=== PATIENT | male | born 1935 | race Caucasian/White ===

== ENCOUNTER 2018-09-29 07:30 | Inpatient (IN) | payer MEDICARE, BC ==
--- NOTE | 2018-10-05 18:22 | HP ---
PREOPERATIVE HISTORY AND PHYSICAL: DATE OF ADMISSION/SURGERY: 10/13/18 DATE OF OFFICE VISIT: 10/05/18 ATTENDING PHYSICIAN: Dr. Lyles.* (DICTATED BY SHANNAN DAVIS) PROCEDURE SCHEDULED: Right total hip arthroplasty. CHIEF COMPLAINT: Right hip pain. HISTORY OF PRESENT ILLNESS: The patient is an 83-year-old male with advanced osteoarthritis in his right hip. He has groin and thigh pain, difficulty ambulating even 1 block. He cannot ambulate well on stairs. He has used anti- inflammatories, a cane, walker, physical therapy and has tried steroid injections without relief of his hip pain. He now has elected to proceed with right total hip arthroplasty. PAST MEDICAL HISTORY: Significant for prostate cancer, osteoarthritis, and tobacco use. PAST SURGICAL HISTORY: He has had prostate surgery. MEDICATIONS: Lupron shots 22.5 mg injection every 6 months. ALLERGIES: No known drug allergies. FAMILY HISTORY: None. SOCIAL HISTORY: He lives with his daughter. He is retired. He chews tobacco. He denies use of alcohol or recreational drugs. He ambulates with a rolling walker. REVIEW OF SYSTEMS: The patient denies recent loss of consciousness, lightheadedness, dizziness, chest pain, shortness of breath, palpitations. He does have frequent urination. He has recent new GI symptoms of needing to defecate immediately after eating with intermittent bowel incontinence. PHYSICAL EXAMINATION GENERAL: He comes in a wheelchair today. He is alert and oriented x3, in no acute distress. Appropriate dress and affect. His daughter is present. VITAL SIGNS: The patient is 5 feet 8 inches tall, 138 pounds. Blood pressure 108/68. HEENT: PERRLA. NECK: Supple. LUNGS: Clear to auscultation without wheeze. HEART: Regular rate and rhythm. No murmur auscultated. ABDOMEN: Nontender. Normoactive bowel sounds x4. EXTREMITIES: Lower extremities: The right hip reveals no open areas or excoriations. Hip flexion to 80 degrees with pain. No internal or external rotation due to significant pain. His calf is nontender and soft. Gross sensation is intact. He has some dried skin in between the toes of both the right and left feet. No erythema or evidence of active infection. He has a 2+ pedal pulse. IMPRESSION: Advanced osteoarthritis of the right hip. PLAN: The patient has elected to proceed with right total hip arthroplasty scheduled 10/13/[address] Farheen Lyles. Risks and benefits of the procedure have been fully discussed with the patient today at his preoperative visit. All questions were answered and he elects to proceed. SHANNAN DAVIS [id number]/[facility] #: [id number] ROMINA
--- NOTE | 2019-01-20 14:00 | HP ---
HISTORY AND PHYSICAL: DATE OF ADMISSION/SURGERY: 01/28/19 DATE OF OFFICE VISIT: 01/18/19 SURGEON: Farheen Lyles MD * (DICTATED BY SHANNAN BRAN) PROCEDURE: Right total hip arthroplasty. CHIEF COMPLAINT: Right hip pain. HISTORY OF PRESENT ILLNESS: Mr. Dorsey is an 83-year-old gentleman with severe end-stage osteoarthritis of the right hip. He has failed conservative treatment and elected to proceed with a right total hip arthroplasty. PAST MEDICAL HISTORY: Prostate cancer. PAST SURGICAL HISTORY: Prostatectomy. CURRENT MEDICATIONS: None. ALLERGIES: None. FAMILY HISTORY: Denies. SOCIAL HISTORY: He is an 83-year-old gentleman. He lives with his daughter. He does not smoke. He does chew tobacco. Denies use of drugs. REVIEW OF SYSTEMS: A complete 14-point review of systems was reviewed with the patient, it was all negative or noncontributory. He denies history of DVT, PE, hepatitis, HIV, or anesthesia problems. PHYSICAL EXAMINATION GENERAL: He is well developed, well nourished, in no acute distress. He is alert and oriented x3. Pleasant mood, appropriate affect. VITAL SIGNS: He stands 68 inches tall, weighs 140 pounds. Blood pressure is 118/78, heart rate 72. HEENT: Normocephalic, atraumatic. NECK: Supple. No palpable lymph nodes. PULMONARY: The lungs are clear to auscultation bilaterally. CARDIO: Regular rate and rhythm. ABDOMEN: Soft, nontender, nondistended. NEUROLOGICAL: He is alert and oriented x3. MUSCULOSKELETAL: Right lower extremity: The skin is intact. There are no open wounds or abrasions. He walks with an antalgic type gait, favoring his right hip. He has decreased range of motion of the right hip. He is able to dorsiflex and plantarflex. He has a 2+ dorsalis pedis pulse and intact sensation. ASSESSMENT AND PLAN: Mr. Dorsey is an 83-year-old gentleman with severe end- stage osteoarthritis of the right hip. He has failed conservative treatment and elected to proceed with a right total hip arthroplasty. The surgery is scheduled for 01/28/[address] Lyles discussed the risks and benefits of the surgery at today's visit and all of his questions were answered. He will follow up with Dr. Lyles 2 weeks after the surgery. SHANNAN BRAN [id number]/[facility] #: [id number] ROMINA
[2019-01-27] MEDS ORDERED: Buffered Lidocaine 1% SYRIN* 1 ML/SYRINGE INTRADERM ONE (12:33)
[2019-01-28] MEDS ORDERED: Lactated Ringers 1000 ML Bag* 1,000 ML IV SCH (06:00)
[2019-01-28] MEDS ORDERED: celeCOXIB CAP* 200 MG PO ONE (06:00)
[2019-01-28] MEDS ORDERED: Acetaminophen TAB* 325 MG PO ONE (06:00)
--- OUTSIDE RECORDS SUMMARY | 2019-01-28 11:17 | XMS REPORT | Continuity of Care Document ---
:1935 External Reference #:[id number] Author Name Farheen Lyles M.D. (transmitted by agent of provider Mary Jane Appiah) Address [address] [place] [address] Care Team Providers Name Role Phone Roberto Huynh D.O. - Internal Care Team Information Pony Edger [phone] Medicine Problems Active Problems Provider Date Localized, primary osteoarthritis Omer Vasquez M.D. Onset: 03/29/2016 Social History Type Date Description Comments Sex Unknown ETOH Use Denies alcohol use Tobacco Use Start: Unknown Patient has never smoked Smoking Status Reviewed: 01/18/19 Patient has never smoked Exercise Type/Frequency Exercises sporadically Allergies, Adverse Reactions, Alerts Description No Known Drug Allergies Medications Active Medications SIG Qnty Indications Ordering Provider Date Probiotic 1 by mouth every Unknown Capsules day Medications Administered in Office Medication SIG Qnty Indications Ordering Provider Date Depomedrol 40MG Farheen Lyles M.D. 12/15/2017 Injection Depomedrol 40MG Farheen Lyles M.D. 12/15/2017 Injection Immunizations Description No Information Available Vital Signs Date Vital Result Comment 01/18/2019 9:17am Height 68 inches 5'8" Weight 140.00 lb BP Systolic 118 mmHg BP Diastolic 78 mmHg Respiratory Rate 16 /min Body Temperature 98.0 F BMI (Body Mass Index) 21.3 kg/m2 11/04/2018 1:18pm Height 68 inches 5'8" Weight 135.00 lb per patient Heart Rate 77 /min BP Systolic Sitting 110 mmHg BP Diastolic Sitting 70 mmHg Body Temperature 97.6 F BMI (Body Mass Index) 20.5 kg/m2 Results Test Acquired Date Facility Test Result H/L Range Note Urinalysis Profile 01/18/2019 [facility] Urine Color Yellow [address] [place] [address] [phone] Urine Appearance Cloudy Urine Specific [place] 1.019 Normal 1.010-1.030 Urine pH 5.0 Normal 5-9 Urine Urobilinogen Negative Negative Urine Ketones Negative Negative Urine Protein Negative Negative Urine Leukocytes Negative Negative Urine Blood Negative Negative * * Abnormal Negative 1 Urine Nitrite Negative Negative Urine Bilirubin Negative Negative Urine Glucose Negative Negative Inr/Protime 01/18/2019 [facility] Inr 0.98 Normal 0.82-1.[address] [place], [place] [id number] [phone] Laboratory test 01/18/2019 [facility] Partial 31.5 Normal 26.0 -38.[address] [place] [address] Time PTT [phone] CBC Auto Diff 01/18/2019 [facility] White Blood 7.4 10^3/uL Normal 3.5-10.[address] [place] [address] [phone] Red Blood Count 4.33 10^6/uL Normal 4.18-5.48 Hemoglobin 12.6 g/dL Low 14.0-18.0 Hematocrit 38 % Low 42-52 Mean Corpuscular Volume 88 fL Normal 80-94 Mean Corpuscular Hemoglobin 29 pg Normal 27-31 Mean Corpuscular HGB Conc 33 g/dL Normal 31-36 Red Cell Distribution Width 14 % Normal 10-15 Platelet Count 240 10^3/uL Normal 150-450 Mean Platelet Volume 8.1 fL Normal 7.4-10.4 Abs Neutrophils 5.4 10^3/uL Normal 1.5-7.7 Abs Lymphocytes 1.2 10^3/uL Normal 1.0-4.8 Abs Monocytes 0.4 10^3/uL Normal 0-0.8 Abs Eosinophils 0.3 10^3/uL Normal 0-0.6 Abs Basophils 0.1 10^3/uL Normal 0-0.2 Abs Nucleated RBC 0.0 10^3/uL Granulocyte % 73.2 % Lymphocyte % 16.4 % Monocyte % 5.8 % Eosinophil % 3.4 % Basophil % 1.2 % Nucleated Red Blood Cells % 0.0 Type & Screen 01/18/2019 [facility] Patient Blood Type A Positive [address] [place], [place] [id number] [phone] Antibody Screen NEGATIVE Comp Metabolic 01/18/2019 [facility] Sodium 144 mmol/L Normal 135-[address] [place] [address] [phone] Potassium 4.1 mmol/L Normal 3.5-5.0 Chloride 108 mmol/L Normal 101-111 Co2 Carbon Dioxide 31 mmol/L Normal 22-32 Anion Gap 5 mmol/L Normal 2-11 Glucose 82 mg/dL Normal 70-100 Blood Urea Nitrogen 29 mg/dL High 6-24 Creatinine 1.24 mg/dL High 0.67-1.17 BUN/Creatinine Ratio 23.4 High 8-20 Calcium 9.4 mg/dL Normal 8.6-10.3 Total Protein 6.6 g/dL Normal 6.4-8.9 Albumin 4.0 g/dL Normal 3.2-5.2 Globulin 2.6 g/dL Normal 2-4 Albumin/Globulin Ratio 1.5 Normal 1-3 Total Bilirubin 0.40 mg/dL Normal 0.2-1.0 Alkaline Phosphatase 94 U/L Normal 34-104 Alt 13 U/L Normal 7-52 Ast 16 U/L Normal 13-39 Egfr Non- 55.7 >60 Egfr 67.4 >60 3 Urine Culture And 01/18/2019 [facility] Urine SEE RESULT [address] [place] [address] [phone] Laboratory test 10/05/2018 [facility] Partial 32.6 seconds Normal 26[address] Thrombo Time -[address] [address] PTT 0 [phone] Urinalysis Profile 10/05/2018 [facility] [place] [address] [phone] Urine Appearance Clear Urine Specific [place] 1.020 Normal 1.010-1.030 Urine pH 6.0 Normal 5-9 Urine Urobilinogen Negative Negative Urine Ketones Negative Negative Urine Protein Negative Negative Urine Leukocytes Negative Negative Urine Blood Negative Negative Urine Nitrite Negative Negative Urine Bilirubin Negative Negative Urine Glucose Negative Negative Type & Screen 10/05/2018 [facility] Patient Blood Type A Positive [address] [place] [address] [phone] Antibody Screen NEGATIVE Urine Culture And 10/05/2018 [facility] Urine Culture SEE RESULT [address] [place] [address] [phone] 1 *Ascorbic acid is present which may interfere with detection of blood. 2 Standard intensity warfarin therapeutic range: 2.0-3.0 High intensity warfarin therapeutic range: 2.5-3.5 3 Because ethnic data is not always readily available, this report includes an eGFR for both -Americans and non- Americans. The National Kidney Disease Education Program (NKDEP) does not endorse the use of the MDRD equation for patients that are not between the ages of 18 and 70, are , have extremes of body size, muscle mass, or nutritional status, or are non- or non-. According to the National Kidney Foundation, irrespective of diagnosis, the stage of the disease is based on the level of kidney function: Stage Description GFR(mL/min/1.73 m(2)) 1 Kidney damage with normal or decreased GFR 90 2 Kidney damage with mild decrease in GFR 60-89 3 Moderate decrease in GFR 30-59 4 Severe decrease in GFR 15-29 5 Kidney failure <15 (or dialysis) 4 SEE RESULT BELOW Name: ROBB DORSEY : [address]: Farheen Lyles MD Acct: [id number] Unit: [id number] AGE: 83 Location: [facility] Re01/18/19 SEX: M Status: REG REF SPEC: [id number] DONTAE: 01/18/19-[address]: Farheen Lyles MD REQ: [id number] RECD: 01/18/19 STATUS:COMP _ SOURCE: URINE SPDESC: ORDERED: Urine Culture QUERIES: Urine Source: Clean Catch Procedure Result Reported Site Urine Culture Final 01/19/19- 1326 ML No Growth (<1,000 CFU/mL) * ML - Main Lab . END OF REPORT DEPARTMENT OF PATHOLOGY, [address] [place] [address] Jesus Strauss M.D. Director [facility] # [id number] 5 SEE RESULT BELOW Name: ROBB DORSEY : [address]: Farheen Lyles MD Acct: [id number] Unit: [id number] AGE: 83 Location: [facility] Re10/05/18 SEX: M Status: REG REF SPEC: [id number] DONTAE: 10/05/[address]: Farheen Lyles MD REQ: [id number] RECD: 10/05/18 STATUS: COMP _ SOURCE: URINE SPDESC: ORDERED: Urine Culture QUERIES: Urine Source: Random Procedure Result Reported Site Urine Culture Final 10/06/18- 1241 ML No Growth (<1,000 CFU/mL) * ML - Main Lab . END OF REPORT DEPARTMENT OF PATHOLOGY, [address] [place] [address] Jesus Strauss M.D. Director [facility] # [id number] Procedures Date Code Description Status 11/04/2018 31838 Fibroptic Laryngoscopy Completed Medical Devices Description No Information Available Encounters Type Date Location Provider Dx Diagnosis Office Visit 11/04/2018 [facility] Jairo Savage, R49.0 Dysphonia 1:30p AT [facility] Garibay R05 Cough Assessments Date Code Description Provider 11/04/2018 R49.0 Dysphonia Jairo Savage M.D. 11/04/2018 R05 Cough Jairo Savage M.D. 10/05/2018 M25.551 Pain in right hip Farheen Lyles M.D. 10/05/2018 M16.11 Unilateral primary osteoarthritis, right Farheen Lyles M.D. hip Plan of Treatment Future Appointment(s):02/08/2019 3:15 pm - Farheen Lyles M.D. at [facility]01/28/2019 12:30 pm - Teodoro Jacobs PA-C at [facility]01/28/2019 12:30 pm - SHANNAN Montoya at [facility]01/28/2019 12:30 pm - Farheen Lyles M.D. at [facility] Functional Status Description No Information Available Mental Status Description No Information Available Referrals Description No Information Available
--- OUTSIDE RECORDS SUMMARY | 2019-01-28 11:17 | XMS REPORT | Continuity of Care Document ---
:1935 External Reference #:[id number] Author Name Farheen Lyles M.D. (transmitted by agent of provider Eugenie Hurtado) Address [address] [place] [address] [place] [address] Care Team Providers Name Role Phone Roberto Huynh D.O. - Internal Care Team Information Fur Matcher Medicine Problems Active Problems Provider Date Localized, [...] Date Facility Test Result H/L Range Note Laboratory test 10/05/[address] [facility] Partial 32.6 Normal 26.0 -38.[address] [place] [address] PTT [phone] Urinalysis 10/05/[address] [facility] Urine Color Yellow Profile [address] [place], [place] [address] [phone] Urine Appearance Clear Urine Specific [place] 1.020 Normal 1.010-1.030 Urine pH 6.0 Normal 5-9 Urine Urobilinogen Negative Negative Urine Ketones Negative Negative Urine Protein Negative Negative Urine Leukocytes Negative Negative Urine Blood Negative Negative Urine Nitrite Negative Negative Urine Bilirubin Negative Negative Urine Glucose Negative Negative Type & Screen 10/05/[address] [facility] Patient Blood Type A Positive [address] [place] [address] [phone] Antibody Screen NEGATIVE Urine Culture And 10/05/[address] [facility] Urine Culture SEE RESULT [address] [place] [address] [phone] 1 SEE RESULT BELOW Name: JANEROBB A : [address]: Farheen Lyles MD Acct: [id number] Unit: [id number] AGE: 83 Location: [facility] Re10/05/18 SEX: M Status: REG REF SPEC: [id number] DONTAE: 10/05/18-[address] [facility] [address]: Farheen Lyles MD REQ: [id number] RECD: 10/05/18 STATUS: COMP _ SOURCE: URINE SPDESC: ORDERED: Urine Culture QUERIES: Urine Source: Random Procedure Result Reported Site Urine Culture Final 10/06/18- 1241 ML No Growth (<1,000 CFU/mL) * ML - Main Lab . END OF REPORT DEPARTMENT OF PATHOLOGY, [address] [place] [address] Jesus Strauss M.D. Director [facility] # [id number] Procedures Date Code Description Status 11/04/2018 10372 Fibroptic Laryngoscopy Completed Medical Devices Description No Information Available Encounters Type Date Location Provider Dx Diagnosis Office Visit 11/04/2018 [facility], R49.0 Dysphonia 1:30p AT [facility] Garibay R05 Cough Assessments Date Code Description Provider 11/04/2018 R49.0 Dysphonia Jairo Savage M.D. 11/04/2018 R05 Cough Jairo Savage M.D. 10/05/2018 M25.551 Pain in right hip Farheen Lyles M.D. 10/05/2018 M16.11 Unilateral primary osteoarthritis, right Farheen Lyles M.D. hip Plan of Treatment Future Appointment(s):02/08/2019 3:15 pm - [facility] 12:30 pm - Teodoro Jacobs PA-C at [facility]01/28/2019 12:30 pm - SHANNAN Montoya at [facility] [place]01/28/2019 12:30 pm - Farheen Lyles M.D. at [facility] Functional Status Description No Information Available Mental Status Description No Information Available Referrals Description No Information Available
[2019-01-28] MEDS ORDERED: celeCOXIB CAP* 200 MG ONE (11:44)
[2019-01-28] MEDS ORDERED: ceFAZolin 2 GM in NS PREMIX(*) 2 GM/100 ML BAG IVPB ONE (11:44)
[2019-01-28] MEDS ORDERED: Acetaminophen TAB* 325 MG ONE (11:44)
[2019-01-28] MEDS ORDERED: Propofol* 10 MG/ML 20 ML BTL ONE ×3 (12:21→16:40)
[2019-01-28] MEDS ORDERED: Lidocaine 2% PF * 5 ML VIAL ONE ×2 (12:22→14:36)
[2019-01-28] MEDS ORDERED: Propofol* 500 MG/50 ML BTL ONE (12:23)
[2019-01-28] MEDS ORDERED: KETAMINE HCL* 50 MG/ML 10 ML VIAL ONE (12:23)
[2019-01-28] MEDS ORDERED: Midazolam* 1 MG/ML 2 ML VIAL (2 MG) ONE (12:24)
[2019-01-28] MEDS ORDERED: ROPIVACAINE 5 MG/ML 30 ML BTL (0.5%) ONE (12:27)
[2019-01-28] MEDS ORDERED: Dexmedetomidine* 200 MCG/2 ML 2 ML VIAL ONE (12:27)
[2019-01-28] MEDS ORDERED: Bupivacaine 0.5%* 50 ML MDV VIAL ONE (14:34)
[2019-01-28] MEDS ORDERED: Bupivacaine-MPF SPINAL* 7.5 MG/ML - 2ML AMP ONE (14:37)
[2019-01-28] MEDS ORDERED: EPHEDrine (Pressors)* 50 MG/ML VIAL ONE (14:46)
[2019-01-28] MEDS ORDERED: Phenylephrine 10 MG/ML VIAL* 1 ML VIAL ONE (14:55)
[2019-01-28] MEDS ORDERED: diPHENhydraMINE PO* 25 MG PO PRN (15:33)
[2019-01-28] MEDS ORDERED: Polyethylene Glycol 3350* 17 GM PACKET PO PRN (15:33)
[2019-01-28] MEDS ORDERED: Magnesium Hydroxide LIQ* 30 ML UDC PO PRN (15:33)
[2019-01-28] MEDS ORDERED: diPHENhydraMINE IV* 50 MG/ML 1 ml VIAL (BENADRYL) IV PRN (15:33)
[2019-01-28] MEDS ORDERED: Ondansetron ODT TAB* 4 MG PO PRN (15:33)
[2019-01-28] MEDS ORDERED: oxyCODONE TAB* 5 MG TAB PO PRN (15:33)
[2019-01-28] MEDS ORDERED: Morphine INJ* 2 MG/ML 1 ML SYRINGE (TWO MG - NEW SYRINGE VERSION) IV PRN (15:33)
[2019-01-28] MEDS ORDERED: Ondansetron INJ* 2 MG/ML VIAL IV PRN (15:33)
[2019-01-28] MEDS ORDERED: oxyCODONE/Acetamin 5/325 MG* TAB PO PRN (15:33)
[2019-01-28] MEDS ORDERED: Ondansetron TAB* 4 MG PO PRN (15:33)
[2019-01-28] MEDS ORDERED: Cyclobenzaprine TAB* 10 MG PO PRN (15:33)
[2019-01-28] MEDS ORDERED: Naloxone* 0.4 MG/ML 1 ML VIAL IV PRN (16:08)
--- NOTE | 2019-01-28 19:10 | OP ---
Operative Report - Blank - Operative Report Date of Operation: 01/28/19 Note: ROBB LARA 1935 Date Of Surgery: 01/28/19 Farheen Lyles MD Suggestion Clerk: Roselia CAMPBELL did help throughout the procedure with preparation of the hip, wound retraction, manipulation of the hip, and wound closure. Anesthesiologist: Roselia Ny MD Anesthesia Type: Spinal Preoperative Diagnosis: Right severe degenerative osteoarthritis of the hip Postoperative Diagnosis: As above Procedure Performed: Right Total Hip Arthroplasty with Acetabular Bone Autografting. Complications: None Specimen: Femoral head and acetabular reamings sent to pathology. Hardware used: This is uncemented Durga total hip arthroplasty hardware for the femur a size 7 accolade II with 127 neck angle femoral component, for the acetabulum a size 54E trident II tritanium multihole cluster hole shell, two screws length 15mm and 20 mm, for the insert a size 36E trident X3 insert, and for the femoral head a size 36 + 2.5 ceramic biolox V40 femoral head. Brief history/Indication: ROBB LARA was known in clinic and had a history of severe right hip pain. He failed conservative treatment with anti- inflammatories, pain pills, intra-articular injections and physical therapy. He elected to undergo right total hip arthroplasty due to continued pain and decreased quality of life. Radiographs showed severe end stage osteoarthritis of the hip with bone on bone contact. Informed consent was obtained from the patient. He understood the risks of surgery included but were not limited to: bleeding, infection, damage to nearby structures, intraoperative fracture, nerve palsy, failure of the hardware, early loosening, stiffness or loss of motion, dislocation, leg length discrepancy, anesthesia complications, stroke, heart attack, blood clot and . He wished to proceed. Intra-Operative findings: Intraoperatively the patient was noted to have severe loss of cartilage of the acetabulum and femoral head. He was noted to have severe ostepenia. 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 Description of the Procedure: ROBB LARA was identified in the preanesthesia unit. His right hip was marked as the correct operative side. Informed consent was signed and placed in the chart. The patient was taken to the operating room and placed under anesthesia without complication. A mathis catheter was placed. The patient was placed on the peg board with all bony prominences well padded. The right lower extremity was prepped and draped in the usual sterile fashion. Preoperative time-out was made to correctly identify the patient, side and site. Appropriate intraoperative antibiotics were given within one hour of incision. A standard posterior incision was made and carried sharply down to the lateral fascia. A new 10 blade was used to make an incision in the fascia in line with the skin incision. A charnley retractor was placed. The piriformis and conjoined tendons were identified and elevated off the posterolateral femur using electrocautery. These were tagged with number 5 Ethibond. Next electrocautery was used to make a posterolateral capsular flap and this was tagged with number 5 Ethibonds. The hip was carefully dislocated. Lesser trochanter to the center of the femoral head was measured at 70 mm. The oscillating saw was used to make the femoral neck cut. The femoral head was carefully removed. The femur was retracted anteriorly and the acetabular retractors were placed. Long-handled knife was used to sharply remove any remaining labrum from the acetabular rim. The acetabulum was sequentially reamed up to a size 54. A bleeding subchondral bone bed was obtained. A trial liner was placed and had excellent fit and stability. There was a substantial subchondral cyst in the weightbearing dome. This was bone grafted with bone from the femoral head. A 54E cup with 2 screws was placed and had excellent stability with appropriate anteversion and abduction angle. A size 36E polyethylene liner was impacted into the acetabular shell. The liner was checked for stability and was stable. Next attention was turned to preparation of the femoral canal. A canal finder was used to enter the proximal femur. The femoral canal was sequentially broached up to a size 7 femoral broach trial. A trial neck and 36 + 2.5 trial femoral head was chosen. Lesser trochanter to center of the femoral head measurement was satisfactory. The hip was reduced and taken through a range of motion. The hip was stable in all positions with good soft tissue tension and appropriate leg lengths. The hip was dislocated and all trials were removed. The final implant chosen was a accolade II size 7. This stem was impacted into the femoral canal without difficulty. The stem was stable with appropriate anteversion. The femoral head chosen was a 36 + 2.5 ceramic head. The head was impacted onto the femoral neck without difficulty. The final lesser trochanter to center of the femoral head measurement was satisfactory. The hip was reduced and taken through a range of motion. The hip was stable in all positions with good soft tissue tension and appropriate leg lengths. The hip was copiously irrigated with sterile saline. The previously tagged capsule and tendons were repaired to the posterolateral femur through two trochanteric drill holes. The lateral fascia layer was closed using number 1 vicryls. The rest of the incision was closed in a layered fashion using 0 and 2-0 vicryls. The skin was closed using 3-0 monocryl suture and Dermabond. Sterile adaptic, 4x4s and paper tape was used to cover the incision. The patients anesthesia was reversed without difficulty. He was taken to the PACU in stable condition. Intended weight-bearing will be as tolerated with posterior hip precautions.
[2019-01-28] MEDS: Lactated Ringers 1000 ML Bag* 1,000 ML IV SCH (19:40)
[2019-01-28] MEDS: Acetaminophen TAB* 325 MG PO SCH (21:54)
[2019-01-28] MEDS: Docusate CAP* 100 MG PO SCH (21:54)
[2019-01-28] MEDS: Magnesium Hydroxide LIQ* 30 ML UDC PO SCH (21:57)
[2019-01-28] MEDS: ceFAZolin 1 GM ADVAN(*) 1 GM in NS 0.9% 50 ML* 50 ML IVPB SCH (21:57)
[2019-01-29 05:30] LABS: Hematocrit 29 % (42-52); Platelet Count 173 10^3/uL (150-450)
[2019-01-29 05:46] LABS: BUN/Creatinine Ratio 18.5 (8-20); Calcium 8.4 mg/dL (8.6-10.3); EGFR African American 70.6 (>60); EGFR Non-African American 58.4 (>60); Potassium 4.3 mmol/L (3.5-5.0)
[2019-01-29] MEDS: Lactated Ringers 1000 ML Bag* 1,000 ML IV SCH ×2 (05:55→21:28)
[2019-01-29] MEDS: ceFAZolin 1 GM ADVAN(*) 1 GM in NS 0.9% 50 ML* 50 ML IVPB SCH ×2 (05:57→12:35)
[2019-01-29] MEDS: Acetaminophen TAB* 325 MG PO SCH ×3 (05:58→23:04)
[2019-01-29] MEDS: Apixaban* 2.5 MG TAB PO SCH ×2 (08:38→22:24)
[2019-01-29] MEDS: Vitamin THERAPEUTIC TAB PO SCH (08:39)
[2019-01-29] MEDS: traMADol TAB* 50 MG PO PRN (08:39)
[2019-01-29] MEDS: Nicotine PATCH 21 MG/24 HR* PATCH TRANSDERM SCH (08:41)
[2019-01-29] MEDS: Magnesium Hydroxide LIQ* 30 ML UDC PO SCH ×2 (08:44→19:59)
[2019-01-29] MEDS: Docusate CAP* 100 MG PO SCH ×2 (08:44→19:58)
--- NOTE | 2019-01-29 11:50 | PN ---
Progress Note - Progress Note Date of Service: 01/29/19 SOAP: Subjective: [Pt was seen in the am after PT. The pt states that he would like to go home. His daughter was with him this morning. They were only able to walk 12 feet with PT. Per nursing he has been having trouble with following the 50% WB protocol. He denies any chest pain or SOB. ] Objective: [General: Pt is alert and oriented x3. NAD MSK, RLE: Dressing is c/d/i. +df/pf. Calf soft and non tedner. 2+ DP pulse. ] Vital Signs Temp 98.4 F 01/29/19 07:18 Pulse 76 01/29/19 07:18 Resp 16 01/29/19 08:39 BP 96/48 01/29/19 07:18 Pulse Ox 98 01/29/19 07:18 Intake & Output 01/28/19 01/29/19 01/29/19 18:59 06:59 18:59 Intake Total 1200 1000 Output Total 600 Balance 1200 400 Weight 140 lb Intake: IV Fluids 1200 LR 1200 Oral 1000 Output: Barth 600 Other: # Bowel Movements 1 1 Estimated Stool Amount Medium Small Assessment: [POD RTHA ] Plan: [50 % WB of the right hip x 1 month Strict posterior hip precautions with absolutely no internal rotation. We discussed the need for acute rehab and PMRU will consider the pt We will continue with current pain management at this time Eliquis x 30 days. ]
[2019-01-29] MEDS ORDERED: NS 0.9% 1000 ML** 1,000 ML IV ONE (20:45)
[2019-01-30] MEDS: Acetaminophen TAB* 325 MG PO SCH ×3 (00:28→16:22)
[2019-01-30] MEDS: traMADol TAB* 50 MG PO PRN (03:34)
[2019-01-30] MEDS: Lactated Ringers 1000 ML Bag* 1,000 ML IV SCH ×2 (06:05→16:26)
[2019-01-30 07:24] LABS: Hematocrit 26 % (42-52); Mean Platelet Volume 8.2 fL (7.4-10.4); Platelet Count 149 10^3/uL (150-450)
--- NOTE | 2019-01-30 07:33 | PN ---
Progress Note - Progress Note Date of Service: 01/30/19 SOAP: Subjective: Pt. is alert, reports moderate pain. Objective: Vital Signs: Temp Pulse Resp BP Pulse Ox 97.5 F 73 13 103/51 97 01/30/19 07:22 01/30/19 07:22 01/30/19 07:22 01/30/19 07:22 01/30/19 07:22 Laboratory Results - last 24 hr 01/30/19 06:46 Hgb 9.0 L Hct 26 L Plt Count 149 L MPV 8.2 RLE - dressing changed, inc c/d/i. distally nvi. thigh swollen but soft. Assessment: 83 yo M pod 2 s/p rtha Plan: pt/ot snf vs prmru 50 % wb rle - extensive bone grafting for acetabular cyst eliquis acute postop blood loss anemia - will monitor hct
[2019-01-30] MEDS: Nicotine PATCH 21 MG/24 HR* PATCH TRANSDERM SCH (07:35)
[2019-01-30] MEDS: Apixaban* 2.5 MG TAB PO SCH ×2 (08:39→20:52)
[2019-01-30] MEDS: Vitamin THERAPEUTIC TAB PO SCH (08:40)
[2019-01-30] MEDS: Magnesium Hydroxide LIQ* 30 ML UDC PO SCH ×2 (08:40→20:52)
[2019-01-30] MEDS: Docusate CAP* 100 MG PO SCH ×2 (08:40→20:53)
--- NOTE | 2019-01-30 09:32 | PN ---
Progress Note - Progress Note Date of Service: 01/30/19 SOAP: Pt is having acute urinary retention. Had 2 straight caths. Placing mathis per urology recommendations. Pt should follow up with urology on Friday.
[2019-01-30] MEDS ORDERED: cefTRIAXone(*) 2 GM in NS 0.9% 100 ML* 100 ML IVPB ONE (13:56)
[2019-01-30] MEDS ORDERED: Bisacodyl SUPP* 10 MG SUPP PR PRN (15:33)
[2019-01-31] MEDS: Acetaminophen TAB* 325 MG PO SCH ×2 (01:57→08:57)
[2019-01-31] MEDS: Lactated Ringers 1000 ML Bag* 1,000 ML IV SCH (02:22)
[2019-01-31 06:17] LABS: Hematocrit 25 % (42-52); Hemoglobin 8.7 g/dL (14.0-18.0); Mean Platelet Volume 7.9 fL (7.4-10.4); Platelet Count 164 10^3/uL (150-450)
[2019-01-31] MEDS ORDERED: Sulfamethox/Trimethoprim DS 800/160* TAB PO SCH (07:00)
[2019-01-31] MEDS: traMADol TAB* 50 MG PO PRN ×2 (07:24→14:13)
[2019-01-31] MEDS: Nicotine PATCH 21 MG/24 HR* PATCH TRANSDERM SCH (07:25)
[2019-01-31] MEDS: Apixaban* 2.5 MG TAB PO SCH (08:57)
[2019-01-31] MEDS: Vitamin THERAPEUTIC TAB PO SCH (08:57)
[2019-01-31] MEDS: Docusate CAP* 100 MG PO SCH (08:59)
[2019-01-31] MEDS: Magnesium Hydroxide LIQ* 30 ML UDC PO SCH (08:59)
--- NOTE | 2019-01-31 09:12 | PN ---
Progress Note - Progress Note Date of Service: 01/31/19 SOAP: Subjective: Pt is doing well. Denies F/C, CP/SOB or calf pain. Difficulty doing stairs with PT Objective: PE- 83 y/o WDWN F NAD RLE- dressing changed, inc c/d/i with no erythema or discharge, calf soft NT, + DF/PF ankle, + 2 Dp pulse, SILT distally Vital Signs Temp Pulse Resp BP Pulse Ox 98.6 F 78 16 109/51 99 01/31/19 08:27 01/31/19 08:27 01/31/19 08:27 01/31/19 08:27 01/31/19 08:27 Laboratory Results - last 24 hr 01/31/19 05:54 Hgb 8.7 L Hct 25 L Plt Count 164 MPV 7.9 Assessment: 83 yo M pod 3 s/p rtha Plan: pt/ot 50 % wb rle - extensive bone grafting for acetabular cyst eliquis for DVT prophylaxis Cont pain control acute postop blood loss anemia - will cont to monitor hct Plan DC to [facility] today vs SNF Friday
--- NOTE | 2019-01-31 10:45 | DS ---
Orthopedic Discharge Summary - Discharge Summary Date of service 01/31 Date of Admission:01/28/19 Date of Discharge: [01/31/19] Date of Surgery: [01/28/19] Attending Orthopedic Provider: [Dr. Lyles] Pre-operative Diagnosis: [Right hip OA] Operative Procedure: [Right total hip replacement] Disposition of Patient: [PMRU] Condition of Patient: [Stable] History: ROBB LARA is a 83 year old M with years of increasingly severe [right hip] pain. Patient has failed conservative management and has elected to undergo a [right] total [hip] replacement Hospital Course: ROBB was admitted to [facility] on 01/28/19. Patient underwent a [right total hip replacement] without complication followed by a brief recovery in PACU and transfer to the Short Stay Surgical Unit in stable condition. Our physical therapy and occupational therapy also participated in this patients care. He was 50 % weight bearing post op due to acetabular bone grafting of a cyst. Post-op day 1: patient was alert and in no acute distress. Dressing was clean, dry and intact. Operative extremity dorsiflexion and plantarflexion intact, sensation intact to light touch distally , DP2+. Post-op day two: dressing was changed, incision was clean, dry and intact. Patient was deemed to be medically and orthopedically stable for discharge on POD 3 to PMRU. Physical therapy goals were met. Due to urinary retention the patient had multiple caths and will require 3 days of bactrim to prevent UTI per urology recommendations. Home Medications Medication Instructions Recorded Confirmed Type Acetaminophen TAB* [Tylenol TAB*] 975 mg PO Q8H tab 01/31/19 Rx Apixaban* [Eliquis*] 2.5 mg PO BID tab 01/31/19 Rx Docusate CAP* [Colace Cap*] 100 mg PO BID cap 01/31/19 Rx Sulfamethox/Trimethoprim DS* 1 tab PO BID tab 01/31/19 Rx [Bactrim DS 800/160 TAB*] traMADol TAB* [Ultram*] 50 mg PO Q6H PRN tab MDD 8 01/31/19 Rx Discharge Instructions following Orthopedic Surgery: Activity: * 50% Weight Bearing due to acetabular cyst bone grafting * Continue physical therapy and occupational therapy exercises as shown Hip replacements: Continue Hip Precautions- do not cross legs or bend greater than 90 degrees/squat Wound care: * OK to shower on post-op day 3, no bathing, swimming, or submerging wound. * Use gentle soap, pat dry. Cover with gauze, JOAN wrap or tape. * Daily dressing changes Call Orthopedic office for: * Increased drainage * Redness * Increased pain * Fever Go to ER with shortness of breath or chest pain. Diet: * Regular diet * Increase fluids and fiber to prevent constipation. * Continue to use stool softeners, call office if no bowel motion within 48 hours. * Colace 100 mg take 1 tab three times a day as needed for constipation Medications See Home Medication List in your packet for medications that you should take after discharge. DVT Prophylaxis: Eliquis Dosin.5 mg, 1 tab every 12 hours x 30 days Pain Control: Tramadol Dosin mg 1-2 tabs by mouth every 6 hours as needed for pain. Maximum of 8 tabs per day. Ok to give tylenol 975 mg 1 tab every 8 hours as needed for pain in addition to tramadol Bactrim DS 800/160 mg take 1 tab by mouth twice a day until 02/03/19 (last dose evening of 02/02) for prevention of UTI after several catheterizations. Antibiotics are required prior to any dental work. FOLLOW UP: Follow up with Dr. Shearer] Within 10-14 days, call for appointment Follow up with urology outpatient if the patient continues to have urinary retention problems Please call our office with any questions or concerns ([phone])
[2019-01-31 11:50] VITALS: BP 104/58
== END 2019-01-31 14:20 | DRG 470 ==
LOC: AA 01-28 11:13 → SSU 01-28 15:33
PROVIDERS: ADMIT Orthopaedic Surgery Adult Reconstructive Orthopaedic Surgery; ATTEND Orthopaedic Surgery Adult Reconstructive Orthopaedic Surgery
PROC: 0SR904A Replacement of Right Hip Joint with Ceramic on Polyethylene Synthetic Substitute, Uncemented, Open Approach (ICD-10-PCS; principal; 2019-01-28 14:30)
DX: M16.11 Unilateral primary osteoarthritis, right hip (principal); D62 Acute posthemorrhagic anemia; R33.9 Retention of urine, unspecified; F17.220 Nicotine dependence, chewing tobacco, uncomplicated; M85.48 Solitary bone cyst, other site; M85.861 Other specified disorders of bone density and structure, right lower leg; Z85.46 Personal history of malignant neoplasm of prostate
CPT/HCPCS: 36415; 80048; 85014; 85018; 85049; A9270-GY; C1713; C1776; G8978-GP-CK; G8978-GP-CL; G8979-GP-CI; G8987-GO-CK; G8988-GO-CI; J0690; J0696; J2250; J2704; J2795; J3490

== ENCOUNTER 2019-01-31 10:41 | Inpatient (IN) | payer MEDICARE, BC ==
[2019-01-31] MEDS ORDERED: Magnesium Hydroxide LIQ* 30 ML UDC PO PRN (15:04)
[2019-01-31] MEDS ORDERED: Senna TAB 8.6 mg* TAB PO PRN (15:04)
[2019-01-31] MEDS ORDERED: Cyclobenzaprine TAB* 10 MG PO PRN (15:09)
[2019-01-31] MEDS: Acetaminophen TAB* 325 MG PO SCH ×2 (16:03→23:59)
--- NOTE | 2019-01-31 17:56 | HP ---
ADMISSION HISTORY AND PHYSICAL: DATE OF ADMISSION: 01/31/19 REASON FOR ADMISSION: Right total hip replacement. HISTORY OF PRESENT ILLNESS: Phil Dorsey is an 83-year-old white male. He has a medical history significant for prostate cancer. He was having increasing difficulty walking on his right leg. He had seen the orthopedic surgeon Dr. Farheen Lyles. X-rays were taken which showed end-stage osteoarthritis. It was decided the best course of action would be for him to have a total hip replacement. He saw his primary care doctor Dr. Huynh prior to the surgery. He was cleared for surgery. He was admitted to [facility] on 01/28/19 and underwent a right total hip replacement. Postoperatively , the patient was started on Eliquis for DVT prophylaxis. He was made 50% weightbearing on his right hip. He had a lot of difficulty following the weightbearing precautions. During his surgery, he had to have extensive bone grafting for an acetabular cyst and that is why he is 50% weightbearing. The patient was felt to have physical therapy and occupational therapy needs. He is now being admitted for inpatient rehab so that he might return to independent living. PAST MEDICAL HISTORY: Significant for prostate cancer. He has undergone a prostatectomy in the past. MEDICATIONS: Current medications include: 1. Tylenol. 2. Eliquis. 3. Flexeril. 4. Nicotine patch. 5. Tramadol. 6. He was recently started on Bactrim by Urology. ALLERGIES: No known drug allergies. SOCIAL HISTORY: The patient is a nonsmoker, although does chew tobacco. He is a nondrinker. Lives with his daughter in a 1-story house with no steps to enter. His other daughter lives upstairs. REVIEW OF SYSTEMS: The patient reports no current shortness of breath or chest pain. PHYSICAL EXAMINATION VITAL SIGNS: The patient's temperature is 98.6, blood pressure is 95/50, pulse 85 and regular, respirations 18. HEENT: His extraocular movements are intact. Tongue is midline. NECK: Supple. LUNGS: Lung sounds clear to auscultation bilaterally. HEART: Heart sounds are regular. S1, S2 are audible. ABDOMEN: Soft and nontender. EXTREMITIES: The patient's right hip has a wound, which is clean and dry. Peripheral pulses are intact. NEUROLOGIC: Sensation is intact. Muscle strength 5/5 in both upper and lower extremities. His right lower extremity is 3/5 secondary to pain. FUNCTIONAL: He transfers with max assist. ASSESSMENT: An 83-year-old who underwent a right total hip replacement. There was extensive bone grafting because of an acetabular cyst and he is now partial weightbearing. PLAN: Integrate him into a comprehensive and therapeutic rehab program with the following goals: 1. Physical Therapy will work with the patient. They are going to work on functional transfer training, ambulation training with a walker. 2. Occupational Therapy will see the patient, work on his activities of daily living including toileting and toilet transfers. 3. Eliquis for DVT prophylaxis. 4. Adequate analgesia. Right now, he is taking tramadol for pain. 5. His bowels will be regulated. 6. Continue the nicotine patch. 7. associate director career services will be closely involved to make sure that any services and equipment the patient requires are in place prior to discharge. 8. Family training as appropriate. 9. Home with appropriate services. ESTIMATED LENGTH OF STAY: 7 to 10 days. [id number]/[facility] #: [id number] ROMINA
[2019-01-31] MEDS: Sulfamethox/Trimethoprim DS 800/160* TAB PO SCH (19:50)
[2019-01-31] MEDS: Apixaban* 2.5 MG TAB PO SCH (19:50)
[2019-01-31] MEDS: traMADol TAB* 50 MG PO PRN (19:51)
[2019-01-31] MEDS: Docusate CAP* 100 MG PO SCH (19:55)
[2019-01-31] MEDS ORDERED: Nicotine Patch Removal NOTE FOLLOW UP SCH (21:00)
[2019-02-01 05:10] LABS: ABS Basophils 0.1 10^3/ul (0-0.2); ABS Eosinophils 0.5 10^3/ul (0-0.6); ABS Lymphocytes 0.9 10^3/ul (1.0-4.8); ABS Monocytes 0.5 10^3/ul (0-0.8); ABS Neutrophils 5.8 10^3/ul (1.5-7.7); Eosinophil % 6.3 %; Hematocrit 25 % (42-52); Hemoglobin 8.6 g/dL (14.0-18.0); Lymphocyte % 12.1 %; Mean Corpuscular HGB Conc 34 g/dL (31-36); Mean Corpuscular Hemoglobin 29 pg (27-31); Mean Corpuscular Volume 87 fL (80-94); Mean Platelet Volume 7.1 fL (7.4-10.4); Platelet Count 196 10^3/uL (150-450); Red Blood Count 2.93 10^6 /uL (4.18-5.48); Red Cell Distribution Width 14 % (10-15); White Blood Count 7.7 10^3/uL (3.5-10.8)
[2019-02-01 05:24] LABS: Albumin 2.7 g/dL (3.2-5.2); Calcium 8.4 mg/dL (8.6-10.3); Total Bilirubin 0.4 mg/dL (0.2-1.0)
[2019-02-01 05:27] LABS: Potassium 5.3 mmol/L (3.5-5.0)
[2019-02-01 05:30] LABS: BUN/Creatinine Ratio 13.6 (8-20); EGFR African American 58.6 (>60); EGFR Non-African American 48.4 (>60); Globulin 2.7 g/dL (2-4); Total Protein 5.4 g/dL (6.4-8.9)
[2019-02-01] MEDS: Docusate CAP* 100 MG PO SCH (08:17)
[2019-02-01] MEDS: Acetaminophen TAB* 325 MG PO SCH ×2 (08:17→15:41)
[2019-02-01] MEDS: Sulfamethox/Trimethoprim DS 800/160* TAB PO SCH (08:19)
[2019-02-01] MEDS: Apixaban* 2.5 MG TAB PO SCH (08:19)
[2019-02-01] MEDS ORDERED: Nicotine PATCH 14 MG/24 HR* PATCH TRANSDERM SCH (09:00)
[2019-02-01] MEDS: traMADol TAB* 50 MG PO PRN (14:48)
[2019-02-01 16:06] VITALS: BP 131/61
--- NOTE | 2019-02-01 16:49 | PN ---
Progress Note Date of Service: 02/01/19 Note: ROBB LARA was visited. Therapy notes read and reviewed. Patient is insisting on being released. His daughters, who initially said they wanted to keep him here until now request to take him home. They were told home services may not start until after . Current Medications: Active Medications Generic Name Dose Route Start Last Admin Trade Name Freq PRN Reason Stop Dose Admin Acetaminophen 975 mg 01/31/19 16:00 02/01/19 15:41 Tylenol Tab* PO 975 mg Q8H EMILI Administration Apixaban 2.5 mg 01/31/19 21:00 02/01/19 08:19 Eliquis* PO 2.5 mg BID EMILI Administration Cyclobenzaprine HCl 10 mg 01/31/19 15:09 Flexeril Tab* PO TID PRN SPASMS Docusate Sodium 100 mg 01/31/19 21:00 02/01/19 08:17 Colace Cap* PO 100 mg BID EMILI Administration Magnesium Hydroxide 30 ml 01/31/19 15:04 Milk Of Luis Eduardo Bazan* PO Q6H PRN CONSTIPATION Nicotine 1 patch 02/01/19 09:00 02/01/19 08:19 Nicotine Patch 14 Mg/24 Hr* TRANSDERM 1 patch DAILY EMILI Administration Pharmacy Profile Note 1 note 01/31/19 21:00 01/31/19 19:54 Nicotine Patch Removal Note* FOLLOW UP 1 note 2100 EMILI Administration Senna 2 tab 01/31/19 15:04 Senokot 8.6 Mg Tab* PO BEDTIME PRN CONSTIPATION Tramadol HCl 50 mg 01/31/19 15:08 02/01/19 14:48 Ultram* PO 50 mg Q6H PRN Administration PAIN - MODERATE Trimethoprim/Sulfamethoxazole 1 tab 01/31/19 21:00 02/01/19 08:19 Bactrim Ds 800/160 Tab* PO 02/03/19 12:00 1 tab BID EMILI Administration Vital Signs: Vital Signs Temp Pulse Resp BP Pulse Ox 97.5 F 94 20 131/61 99 02/01/19 16:04 02/01/19 16:04 02/01/19 16:04 02/01/19 16:04 02/01/19 16:04 Lab Results: Laboratory Results - last 24 hr 02/01/19 02/01/19 05:01 05:01 WBC 7.7 RBC 2.93 L Hgb 8.6 L Hct 25 L MCV 87 MCH 29 MCHC 34 RDW 14 Plt Count 196 MPV 7.1 L Neut % (Auto) 74.8 Lymph % (Auto) 12.1 [place] % (Auto) 5.9 Eos % (Auto) 6.3 Baso % (Auto) 0.9 Absolute Neuts (auto) 5.8 Absolute Lymphs (auto) 0.9 L Absolute Monos (auto) 0.5 Absolute Eos (auto) 0.5 Absolute Basos (auto) 0.1 Absolute Nucleated RBC 0.0 Nucleated RBC % 0.0 Sodium 138 Potassium 5.3 H Chloride 108 Carbon Dioxide 26 Anion Gap 4 BUN 19 Creatinine 1.40 H Est GFR ( Amer) 58.6 Est GFR (Non-Af Amer) 48.4 BUN/Creatinine Ratio 13.6 Glucose 94 Calcium 8.4 L Total Bilirubin 0.40 AST 15 ALT 5 L Alkaline Phosphatase 75 Total Protein 5.4 L Albumin 2.7 L Globulin 2.7 Albumin/Globulin Ratio 1.0 Exam: GENERAL: Alert. In no distress LUNGS: Clear bilaterally HEART: Regular rhythm ABDOMEN: Soft EXTREMITIES: right hip wound C/D/I NEUROLOGIC: Sensation intact. Muscle strength 5/5 except proximal RLE due to pain Assessment/Plan: 1. Right total hip replacement: 50% WB On RLE. PT/OT 2. DVT Prophylaxis: Eliquis 3. Advance Directives: Full code 4. Disposition: Family and patient intent on going home today. They were told they cannot come back. Referral for home care, but will likely not start until after Thanksgi02/01/19 16:46
--- NOTE | 2019-02-01 21:14 | DS ---
CC: Dr. Roberto Huynh * DISCHARGE SUMMARY: DATE OF ADMISSION: 01/31/19 DATE OF DISCHARGE: 02/01/19 DISCHARGE DIAGNOSES: 1. Right total hip replacement. 2. Prostate cancer. HISTORY OF ILLNESS AND HOSPITAL COURSE: For complete history of the events leading up to his rehab stay, please see the history and physical dictated by me on 01/31/19. While on the rehab unit, the patient remained medically stable. He was maintained on Eliquis for DVT prophylaxis. He received oral tramadol for analgesia. The patient worked with physical therapy and occupational therapy and then insisted he was going home. His family members initially said they would not take him home, but later changed their minds. The family members did training with both physical and occupational therapy and decided to take him home after the first day of rehab. As the patient had 24- hour supervision and help 24 hours a day, he was allowed to go home. DISCHARGE DIET: Regular. DISPOSITION: Home. CONDITION AT DISCHARGE: Stable. DISCHARGE MEDICATIONS: 1. Eliquis 2.5 mg twice daily for a month. 2. Tramadol 50 mg every 6 hours as needed. 3. Bactrim double strength 1 tablet twice a day for 5 doses. SERVICES AFTER DISCHARGE: [facility]. He will have home physical therapy and a home health aide. FOLLOWUP: Follow up with his orthopedic surgeon, Dr. Farheen Lyles as well as his primary care doctor, Dr. Roberto Huynh. TIME SPENT: Time for this discharge was approximately 50 minutes, greater than half of which was spent with the patient and his daughters explaining post- rehabilitation medicines, therapies, and services as well as the implications of his going home. [id number]/[facility] #: [id number] MTDD
== END 2019-02-01 17:00 | disposition home health service (06) | DRG 561 ==
LOC: PMRU 14:32
PROVIDERS: ADMIT Physical Medicine & Rehabilitation; ATTEND Physical Medicine & Rehabilitation
PROC: F07Z5ZZ Bed Mobility Treatment (ICD-10-PCS; principal; 2019-01-31)
PROC: F07Z9ZZ Gait Training/Functional Ambulation Treatment (ICD-10-PCS; 2019-01-31)
PROC: F07Z8ZZ Transfer Training Treatment (ICD-10-PCS; 2019-01-31)
PROC: F08Z0ZZ Bathing/Showering Techniques Treatment (ICD-10-PCS; 2019-01-31)
PROC: F08Z1ZZ Dressing Techniques Treatment (ICD-10-PCS; 2019-01-31)
PROC: F08Z3ZZ Feeding/Eating Treatment (ICD-10-PCS; 2019-01-31)
DX: Z47.1 Aftercare following joint replacement surgery (principal); Z96.641 Presence of right artificial hip joint; F17.220 Nicotine dependence, chewing tobacco, uncomplicated; Z85.46 Personal history of malignant neoplasm of prostate; Z79.1 Long term (current) use of non-steroidal anti-inflammatories (NSAID); Z79.899 Other long term (current) drug therapy
CPT/HCPCS: 36415; 80053; 85025; A9270-GY